=== PATIENT | female | born 1985 | race Caucasian/White ===

== ENCOUNTER → 2016-09-25 | Outpatient (CLI) | payer OTHER ==
[~2016-09-25] MED LIST: ACET325T96 PO; IBUP-1050 PO; MULT-506 PO; PRLSR20 PO
== END | disposition home or self-care (01) ==
LOC: C.LABPVFM 10:27
PROVIDERS: ATTEND Nurse Practitioner
DX: J02.9 Acute pharyngitis, unspecified (principal)

== ENCOUNTER → 2016-10-15 | Outpatient (CLI) | payer OTHER ==
[2016-10-15 18:11] LABS: BASO % 0.4 %; BASO ABS # 0.03 K/uL (0-0.2); COMPLETE YES; EOS % 3.4 %; HEMATOCRIT 41.2 % (37-47); LYMPH ABS # 1.89 K/uL (1.2-3.4); MEAN CELL VOLUME 89.6 fL (80-100); MEAN CORPUSCULAR HEMOGLOBIN 30.2 pg (25-34); MEAN CORPUSCULAR HGB CONC 33.7 g/dl (32-36); MEAN PLATELET VOLUME 10.2 fL (7.4-10.4); MONO % 8.9 %; NEUT % 61.3 %; PLATELET COUNT 294 K/uL (130-400); WHITE BLOOD COUNT 7.27 K/uL (4.8-10.8)
== END | disposition home or self-care (01) ==
LOC: C.LABPVFM 13:27
PROVIDERS: ATTEND Nurse Practitioner
DX: R59.1 Generalized enlarged lymph nodes (principal)

== ENCOUNTER → 2016-10-16 | Outpatient (CLI) | payer OTHER | END | disposition home or self-care (01) | LOC: C.LABPVFM 14:59 | PROVIDERS: ATTEND Nurse Practitioner | DX: J02.9 Acute pharyngitis, unspecified (principal); R59.1 Generalized enlarged lymph nodes ==

== ENCOUNTER → 2016-11-19 | Outpatient (CLI) | payer OTHER ==
--- NOTE | 2016-11-19 14:40 | DIAGNOSTIC IMAGING REPORT ---
NECK ULTRASOUND CLINICAL HISTORY: Neck mass. COMPARISON STUDY: None. TECHNIQUE: Sonography of the neck at site of palpable abnormality was performed. FINDINGS: No enlarged cervical lymph nodes are identified. Sonography of the right neck at site of palpable abnormality demonstrated 2 hypoechoic nodules that measure up to 0.8 x 0.6 x 0.2 cm suggestive of benign-appearing lymph nodes. No mass was identified. IMPRESSION: 2 benign-appearing right cervical lymph nodes which may reflect the palpable abnormalities. No enlarged cervical lymph node is identified by sonography. Clinical follow up to ensure stability is recommended. If these should enlarge, repeat ultrasound is recommended. Electronically signed by: Jamari De Paz M.D. 11/19/2016 2:38 PM Dictated Date/Time: 11/19/2016 2:34 PM
== END | disposition home or self-care (01) ==
LOC: C.ULTR 14:08
PROVIDERS: ATTEND Nurse Practitioner
DX: R22.1 Localized swelling, mass and lump, neck (principal)

== ENCOUNTER → 2016-11-30 | Outpatient (CLI) | payer OTHER ==
--- NOTE | 2016-12-03 08:32 | MAMMOGRAPHY REPORT ---
UNILATERAL LEFT DIGITAL DIAGNOSTIC MAMMOGRAM TOMOSYNTHESIS WITH CAD AND TARGETED LEFT ULTRASOUND: 11/19 CLINICAL HISTORY: 31-year-old woman presents for follow-up in the left breast. At the time of prior exam she felt an excised lump in her left breast upper outer quadrant, 12:00 and retroareolar axis. Currently, she reports multiple small lumps that come and go, but reports the largest area is unchang ed in size. TECHNIQUE: Left breast tomosynthesis in addition to standard 2D mammography was performed. Current st udy was also evaluated with a Computer Aided Detection (CAD) system. COMPARISON: Comparison is made to exams dated: 05/26/2016 ultrasound, 05/26/2016 mammogram, 04/07/2016 ultrasound, and 07/03/2014 ultrasound - [facility]. BREAST COMPOSITION: There are scattered areas of fibroglandular density in the left breast. FINDINGS: A triangular skin palpable marker overlies the upper outer anterior left breast, denoting t he palpable lump pointed out by the patient. The parenchymal pattern of the left breast is unchanged compared to the prior exam. No new suspicious mass, architectural distortion or cluster of microcal cifications is seen. Targeted ultrasound was performed in the left breast 11:00, 12:00, 1:00 and retroareolar axes. Delia l fibroglandular tissue is seen without a suspicious solid or cystic mass. IMPRESSION: ACR BI-RADS CATEGORY 2: BENIGN, TARGETED ULTRASOUND ACR BI-RADS CATEGORY 2: BENIGN Stable mammographic appearance of the left breast. There is no mammographic or targeted sonographic evidence of malignancy. No suspicious mammographic or sonographic abnormality to explain the palpabl e lumps in the left breast. Clinical follow-up is recommended, as biopsy of a clinically suspicious mass should not be precluded by negative imaging. These results and recommendations were discussed with the patient at the time of the exam. Approximately 10% of breast cancers are not detected with mammography. A negative mammographic report should not delay biopsy if a clinically suggestive mass is present. Kourtney Nowak M.D. ay/:11/30/2016 12:20:38 Horse Groomer: Dafne RIVERA(Latricia)(Daniel), [facility] letter sent: Normal 1/2 BI-RADS Code: ACR BI-RADS Category 2: Benign Ultrasound BI-RADS: ACR BI-RADS Category 2: Benign
== END | disposition home or self-care (01) ==
LOC: C.MAMM 11:25
PROVIDERS: ATTEND Surgery
DX: Z09 Encounter for follow-up examination after completed treatment for conditions other than malignant neoplasm (principal)

== ENCOUNTER → 2016-12-07 | Outpatient (CLI) | payer OTHER | END | disposition home or self-care (01) | LOC: C.LABPVFM 09:25 | PROVIDERS: ATTEND Obstetrics & Gynecology | DX: Z32.01 Encounter for pregnancy test, result positive (principal) ==

== ENCOUNTER → 2016-12-28 | Outpatient (CLI) | payer OTHER ==
[2016-12-28 16:24] LABS: URINE APPEARANCE CLEAR (CLEAR); URINE BILIRUBIN NEG (NEG); URINE COLOR YELLOW; URINE NITRITE NEG (NEG); URINE PH 7.5 (4.5-7.5); URINE SPECIFIC GRAVITY 1.014 (1.000-1.030); UROBILINOGEN NEG (NEG)
[2016-12-28 16:26] LABS: MANUAL MICROSCOPIC REQUIRED? NO; REVIEW REQ? NO
== END | disposition home or self-care (01) ==
LOC: C.LABSPEC 16:05
PROVIDERS: ATTEND Obstetrics & Gynecology
DX: Z34.90 Encounter for supervision of normal pregnancy, unspecified, unspecified trimester (principal)

== ENCOUNTER → 2017-01-05 | Outpatient (CLI) | payer OTHER ==
[2017-01-05 16:35] LABS: BASO % 0.1 %; BASO ABS # 0.01 K/uL (0-0.2); COMPLETE YES; EOS % 0.5 %; HEMATOCRIT 37.8 % (37-47); IG% 0.1 %; LYMPH % 15.2 %; LYMPH ABS # 1.13 K/uL (1.2-3.4); MEAN CELL VOLUME 88.1 fL (80-100); MEAN CORPUSCULAR HEMOGLOBIN 29.8 pg (25-34); MEAN CORPUSCULAR HGB CONC 33.9 g/dl (32-36); MEAN PLATELET VOLUME 10.7 fL (7.4-10.4); MONO % 8.7 %; NEUT % 75.4 %; PLATELET COUNT 248 K/uL (130-400); RED BLOOD COUNT 4.29 M/uL (4.2-5.4); WHITE BLOOD COUNT 7.45 K/uL (4.8-10.8)
== END | disposition home or self-care (01) ==
LOC: C.LAB1850 15:26
PROVIDERS: ATTEND Obstetrics & Gynecology
DX: Z34.90 Encounter for supervision of normal pregnancy, unspecified, unspecified trimester (principal)

== ENCOUNTER → 2017-01-05 | Outpatient (CLI) | payer OTHER ==
[2017-01-07 16:23] LABS: CHLAMYDIA TRACH RNA*** NOT DETECTED (NOT DETECTED); GC (NEIS GONORRHOEAE)RNA** NOT DETECTED (NOT DETECTED)
== END | disposition home or self-care (01) ==
LOC: C.LABSPEC 17:40
PROVIDERS: ATTEND Obstetrics & Gynecology
DX: Z34.90 Encounter for supervision of normal pregnancy, unspecified, unspecified trimester (principal)

== ENCOUNTER → 2017-03-05 | Outpatient (CLI) | payer OTHER ==
[2017-03-05 19:05] LABS: GTGD 50 Grams
== END | disposition home or self-care (01) ==
LOC: C.LAB1850 16:56
PROVIDERS: ATTEND Obstetrics & Gynecology
DX: Z34.82 Encounter for supervision of other normal pregnancy, second trimester (principal)

== ENCOUNTER → 2017-05-21 | Outpatient (CLI) | payer OTHER ==
[2017-05-21 17:18] LABS: HEMATOCRIT 34.6 % (37-47)
[2017-05-21 21:31] LABS: GTGD 50 Grams
== END | disposition home or self-care (01) ==
LOC: C.LAB1850 15:52
PROVIDERS: ATTEND Obstetrics & Gynecology
DX: Z34.82 Encounter for supervision of other normal pregnancy, second trimester (principal)

== ENCOUNTER → 2017-06-16 | Outpatient (CLI) | payer OTHER ==
[~2017-06-16] MED LIST changes: +ACET-1693 PO; -ACET325T96 PO; +PREN1TAB29 PO
--- NOTE | 2017-06-17 13:48 | MAMMOGRAPHY REPORT ---
ULTRASOUND OF LEFT BREAST: 06/16/2017 CLINICAL HISTORY: 32-year-old woman presents for follow-up in the left breast for diffuse nodularity and lumpiness throughout the superior breast. Patient also reports new lumpiness in the 11:00 and 12 :00 right breast. Prior diagnostic workup in the left breast failed to demonstrate any suspicious ma mmographic or sonographic abnormalities. She is currently 32 weeks . COMPARISON: Comparison is made to exams dated: 11/30/2016 mammogram, 11/30/2016 ultrasound, 05/26/2016 ultrasound, 05/26/2016 mammogram, 04/07/2016 ultrasound, and 07/03/2014 ultrasound - [facility]. FINDINGS: Real-time high-resolution sonographic evaluation was performed throughout the superior left breast from the 10:00 through 12:00 and 12:00 through 3:00 axes. Sonographically normal tissue with prominent lactational changes are evident. No suspicious solid or cystic mass is seen. Targeted ultrasound in the right 11:00 and 12:00 axes in the areas of new nodularity pointed out by t he patient also demonstrate lactational change. No suspicious solid or cystic mass. IMPRESSION: ACR BI-RADS CATEGORY 2: BENIGN There is no sonographic evidence of malignancy in the breasts. No suspicious abnormalities are ident ified in either breast to explain the diffuse nodularity felt within each superior breast; only diffu se lactational changes and currently evident. Therefore, continued clinical follow-up is recommended . Kourtney Nowak M.D. ay/:06/16/2017 14:54:04 Nurse Case Manager: Dr. Kourtney Nowak, [facility] letter sent: Normal 1/2 BI-RADS Code: ACR BI-RADS Category 2: Benign
== END | disposition home or self-care (01) ==
LOC: C.MAMM 13:56
PROVIDERS: ATTEND Surgery
DX: R92.2 Inconclusive mammogram (principal); Z34.90 Encounter for supervision of normal pregnancy, unspecified, unspecified trimester

== ENCOUNTER → 2017-06-18 | Outpatient (CLI) | payer OTHER | END | disposition home or self-care (01) | LOC: C.LABSPEC 15:33 | PROVIDERS: ATTEND Obstetrics & Gynecology | DX: Z34.82 Encounter for supervision of other normal pregnancy, second trimester (principal) ==

== ENCOUNTER → 2017-07-21 | Outpatient (CLI) | payer OTHER ==
[~2017-07-21] MED LIST changes: -ACET-1693 PO; +ACET325T96 PO; -PREN1TAB29 PO
== END | disposition home or self-care (01) ==
LOC: C.LABSPEC 17:56
PROVIDERS: ATTEND Obstetrics & Gynecology
DX: Z34.83 Encounter for supervision of other normal pregnancy, third trimester (principal)

== ENCOUNTER 2017-08-18 00:37 | Emergency (ER) | payer OTHER ==
[~2017-08-18] VITALS: Ht 160 cm; Wt 69.7 kg
[~2017-08-18 00:37] MED LIST changes: -ACET325T96 PO; -IBUP-1050 PO; -PRLSR20 PO
[2017-08-18 00:39] VITALS: TEMP 36.8; Ht 160 cm; Wt 69.7 kg
[2017-08-18] MEDS ORDERED: PREN1TAB29 PO (01:08)
--- NOTE | 2017-08-18 01:13 | EMERGENCY ROOM VISIT NOTE ---
History Report prepared by Leandro: Clyde Echols Under the Supervision of: Dr. Regina Carrillo D.O. First contact with patient: 00:46 Chief Complaint: CARDIAC ASSESSMENT Stated Complaint: LOW HR,GAVE ON WEDNESDAY History of Present Illness The patient is a 32 year old female who presents to the Emergency Room with complaints of persistent low heart rate for the past couple of days. The patient states that she gave four days ago, and she states that her heart rate has gotten lower than usual. She states that while walking around her heart rate was around 55, and then at night is was around 45 at night. The patient states that she feels the pulses in her neck. She states that her heart rate is usually around 85, and she usually has a history of PVCs, though she states that this seems different. She notes that she has been feeling tired as well. The patient states that she is not any new medications, she is just taking vitamins, and she states that she is breast feeding. The patient states that she had a vaginal delivery, and there were no complications and not very much blood loss. She notes that she called her OB doctor, and they told her to come to the ED for evaluation. The patient denies any other medical problems, thyroid problems, and any high blood pressure with . She is denying any other symptoms. The patient notes that this is her third child, though this is her first time breast feeding. Source of History: patient Onset: a couple days Position: other (heart) Quality: other (low heart rate) Timing: other (persistent) Note: Associated symptoms: Tired Review of Systems See HPI for pertinent positives & negatives. A total of 10 systems reviewed and were otherwise negative. Past Medical & Surgical Medical Problems: (1) 39 weeks gestation of (2) Active labor at term (3) Pneumonia Family History Cancer Diabetes mellitus Heart disease Hypertension Kidney disease Social History Smoking Status: Never Smoker Alcohol Use: none Marital Status: Housing Status: lives with family Current/Historical Medications Scheduled Vit W/ Ferrous Fumara (), 1 TAB PO DAILY Allergies Coded Allergies: Clarithromycin (Verified Allergy, Intermediate, RASH, 08/18/17) Sulfa Antibiotics (Verified Allergy, Intermediate, GI UPSET, 08/18/17) [place] (Verified Allergy, Mild, itchy mouth and gums, 08/18/17) Carrot (Verified Allergy, Mild, ITCHY MOUTH WITH RAW CARROTS, 08/18/17) Potato (Verified Allergy, Mild, ITCHY MOUTH WITH RAW POTATOES, 08/18/17) Physical Exam Vital Signs Date Time Temp Pulse Resp B/P (MAP) Pulse Ox O2 Delivery O2 Flow Rate FiO2 08/18/17 02:00 47 16 120/76 100 Room Air 08/18/17 01:46 51 23 128/77 100 Room Air 08/18/17 01:31 53 17 128/80 99 Room Air 08/18/17 01:19 57 24 134/85 99 Room Air 08/18/17 01:01 54 21 137/83 99 Room Air 08/18/17 00:58 51 18 139/86 99 Room Air 08/18/17 00:56 68 08/18/17 00:53 61 21 153/100 99 Room Air 08/18/17 00:52 Room Air 08/18/17 00:39 36.8 66 20 157/93 100 Room Air Physical Exam HEENT: Head - normocephalic and atraumatic Pupils are equal, round, and reactive to light. Extraocular eye muscles are intact, and sclera are anicteric. Nose - moist nasal mucosa without discharge. Mouth - moist buccal mucosa. Oropharynx is nonerythematous and there is no tonsillar exudate or edema noted. Neck: Supple; no JVD, nuchal rigidity, cervical lymphadenopathy. Heart: Regular rate and rhythm. There is a normal S1 and S2 with no murmurs, clicks, or gallops appreciated. Lungs: Clear to auscultation bilaterally with no wheezes, rales, or rhonchi. Abdomen: Soft, completely nontender, nondistended, with good bowel sounds. There are no palpable pulsatile masses or hepatosplenomegaly. There is no guarding, rigidity, or rebound noted. Extremities: No evidence of cyanosis, clubbing, or edema. There are easily palpable peripheral pulses. Skin: warm and dry with good turgor and no rashes. Medical Decision & Procedures Laboratory Results 08/18/17 01:10 08/18/17 01:10 Test 08/18/17 01:10 08/18/17 01:15 Red Blood Count 4.32 M/uL (4.2-5.4) Mean Corpuscular Volume 89.8 fL (80-100) Mean Corpuscular Hemoglobin 30.8 pg (25-34) Mean Corpuscular Hemoglobin Concent 34.3 g/dl (32-36) RDW Standard Deviation 43.8 fL (36.4-46.3) RDW Coefficient of Variation 13.2 % (11.5-14.5) Mean Platelet Volume 10.1 fL (7.4-10.4) Anion Gap 9.0 mmol/L (3-11) Est Creatinine Clear Calc Drug Dose 131.6 ml/min Estimated GFR () 142.4 Estimated GFR (Non- 122.8 BUN/Creatinine Ratio 20.2 (10-20) Calcium Level 9.0 mg/dl (8.5-10.1) Thyroid Stimulating Hormone (TSH) 3.020 uIu/ml (0.300-4.500) Urine Color YELLOW Urine Appearance CLEAR (CLEAR) Urine pH 7.0 (4.5-7.5) Urine Specific Waves 1.006 (1.000-1.030) Urine Protein NEG (NEG) Urine Glucose (UA) NEG (NEG) Urine Ketones NEG (NEG) Urine Occult Blood TRACE (NEG) Urine Nitrite NEG (NEG) Urine Bilirubin NEG (NEG) Urine Urobilinogen NEG (NEG) Urine Leukocyte Esterase NEG (NEG) Urine WBC (Auto) 0 /hpf (0-5) Urine RBC (Auto) 0-4 /hpf (0-4) Urine Hyaline Casts (Auto) 0 /lpf (0-5) Urine Epithelial Cells (Auto) 0-5 /lpf (0-5) Urine Bacteria (Auto) NEG (NEG) Laboratory results per my review. ECG Per My Interpretation Indication: bradycardia Rate (beats per minute): 61 Rhythm: normal sinus Findings: no acute ischemic change, no ectopy ED Course 0046: Past medical records reviewed. The patient was evaluated in room A10. A complete history and physical exam was performed. An IV lock was initiated and labs were drawn as above. A 12-lead EKG was obtained as described above. She was observed on the school crossing guard and pulse oximeter. 0152: I reevaluated the patient, and she states that she is feeling fine, and she has not had any PVCs while here. 0206: Upon reevaluation, the patient is doing well. I discussed findings and results with her. She verbalized agreement of the treatment plan. She was discharged home. Medical Decision The patient is a 32 year old female who presents to the ED with low heart rate. Differential diagnosis includes preeclampsia, thyroid dysfunction, normal bradycardia with sleep, PVCs Lab results: White count is normal, stable H&H, normal TSH, normal renal function and glucose, urine only had trace blood. This is a 32-year-old female patient who noticed that she was bradycardic at home. The patient had no symptoms associated with this lower heart rate. She does admit to being significantly sleep deprived secondary to having a baby 5 days ago and being up with the baby trying to breast-feed over the past 5 days. The patient's heart rate was in the high 50s and low 60s at times while she is resting comfortably here in the emergency department. I have asked the patient to take it easy over the next couple of days and return to the emergency department if she develops any associated symptoms with her bradycardia such as lightheadedness, dizziness or weakness. Otherwise, she can follow-up with the PCP. Medication Reconcilliation Current Medication List: was personally reviewed by me Blood Pressure Screening Patient's blood pressure: Normal blood pressure Impression Primary Impression: Bradycardia Scribe Attestation The scribe's documentation has been prepared under my direction and personally reviewed by me in its entirety. I confirm that the note above accurately reflects all work, treatment, procedures, and medical decision making performed by me. Departure Information Dispostion Home / Self-Care Referrals Honorio Stevens M.D. (PCP) Forms IMPORTANT VISIT INFORMATION Patient Instructions My [facility] Additional Instructions Rest. Take plenty of clear liquids Return to the ER if you have any symptoms of weakness, light-headedness, or dizziness. Follow up with PCP by wednesday
[2017-08-18 01:24] LABS: HEMATOCRIT 38.8 % (37-47); HEMOGLOBIN 13.3 g/dL (12.0-16.0); MEAN CELL VOLUME 89.8 fL (80-100); MEAN CORPUSCULAR HEMOGLOBIN 30.8 pg (25-34); MEAN CORPUSCULAR HGB CONC 34.3 g/dl (32-36); MEAN PLATELET VOLUME 10.1 fL (7.4-10.4); PLATELET COUNT 241 K/uL (130-400); RED CELL DISTRIBUTION WIDTH CV 13.2 % (11.5-14.5); RED CELL DISTRIBUTION WIDTH SD 43.8 fL (36.4-46.3)
[2017-08-18 01:45] LABS: CREATININE 0.58 mg/dl (0.60-1.20); POTASSIUM 3.7 mmol/L (3.5-5.1)
[2017-08-18 02:00] VITALS: BP 120/76; PULSE 47; O2SAT 100
== END 2017-08-18 02:15 | disposition home or self-care (01) ==
LOC: C.EDB 00:38 → C.EDA 02:15
DX: R00.1 Bradycardia, unspecified (principal); Z87.01 Personal history of pneumonia (recurrent); Z80.9 Family history of malignant neoplasm, unspecified; Z83.3 Family history of diabetes mellitus; Z82.49 Family history of ischemic heart disease and other diseases of the circulatory system; Z84.1 Family history of disorders of kidney and ureter; Z88.1 Allergy status to other antibiotic agents; Z88.2 Allergy status to sulfonamides; Z91.018 Allergy to other foods

== ENCOUNTER → 2017-09-24 | Outpatient (CLI) | payer OTHER ==
[~2017-09-24] MED LIST changes: -MULT-506 PO; +PREN1TAB29 PO
== END | disposition home or self-care (01) ==
LOC: C.PAPS 10:14
PROVIDERS: ATTEND Obstetrics & Gynecology
DX: Z12.4 Encounter for screening for malignant neoplasm of cervix (principal)

== ENCOUNTER → 2018-01-17 | Outpatient (CLI) | payer OTHER | END | disposition home or self-care (01) | LOC: C.LABPVFM 12:11 | PROVIDERS: ATTEND Family Medicine | DX: N39.0 Urinary tract infection, site not specified (principal) ==